=== PATIENT | male | born 1965 | race Caucasian/White ===

== ENCOUNTER 2017-05-28 08:15 | Emergency (ER) | payer OTHER ==
[2017-05-28 08:30] VITALS: BP 131/91
--- NOTE | 2017-05-28 09:09 | UC ---
General HPI - HPI Summary HPI Summary: 51 yo gentleman c/o since Saturday (today is ) fever, sore throat, cough min prod, nausea no vomit. + achy all over. + h/a with fever. - History of Current Complaint Chief Complaint: UCRespiratory Stated Complaint: FLU SYMPTOMS Time Seen by Provider: 05/28/17 08:41 Hx Obtained From: Patient Pain Intensity: 2 - Allergy/Home Medications Allergies/Adverse Reactions: Allergies Allergy/AdvReac Type Severity Reaction Status Date / Time allopurinol Allergy See Comment Verified 05/28/17 08:30 Home Medications: Home Medications Acetaminophen [APAP] 650 mg PO 05/28/17 [History] Dextromethorphn/Acetaminoph/Cp [Vicks Nyquil Cold & Flu Liquid] 05/28/17 [ History] PMH/Surg Hx/FS Hx/Imm Hx Previously Healthy: Yes - Surgical History Surgical History: None - Family History Known Family History: Positive: None - Social History Occupation: Employed Full-time Alcohol Use: Weekly Substance Use Type: None Smoking Status (MU): Never Smoked Tobacco Review of Systems Constitutional: Fever Skin: Negative Eyes: Negative ENT: Sore Throat, Nasal Discharge Respiratory: Cough Cardiovascular: Negative Gastrointestinal: Nausea Genitourinary: Negative Motor: Other - see hpi Musculoskeletal: Other: - see hpi Neurological: Other - see hpi Psychological: Negative Is Patient Immunocompromised?: No All Other Systems Reviewed And Are Negative: Yes Physical Exam Triage Information Reviewed: Yes Appearance: Well-Nourished - sitting up. conversing in full sentances. Vital Signs: Initial Vital Signs Temp 98.3 F 05/28/17 08:26 Pulse 87 05/28/17 08:26 Resp 18 05/28/17 08:26 BP 131/91 05/28/17 08:26 Pulse Ox 98 05/28/17 08:26 Vital Signs Reviewed: Yes Eye Exam: Normal ENT: Positive: Pharyngeal erythema - no sores or exudates. uvula midline., TM dull Neck exam: Normal Neck: Positive: Supple, Nontender Respiratory Exam: Normal Respiratory: Positive: Chest non-tender, Lungs clear, Normal breath sounds, No respiratory distress Cardiovascular Exam: Normal Cardiovascular: Positive: RRR, No Murmur, Pulses Normal Abdominal Exam: Normal Abdomen Description: Positive: Nontender - but feels that nausea will start once he starts moving around Bowel Sounds: Positive: Present Musculoskeletal Exam: Normal - moves x 4 ext's, gait steady Neurological Exam: Normal - grossly nonfocal Psychological Exam: Normal - conversing easily and appropriately Skin Exam: Normal - no visible or reported rash Course/Dx - Course Course Of Treatment: Influenza B. Reviewed with Mr. De La Cruz coa /tx plan. Questions as posed answered to the best of my ability. - Differential Dx - Multi-Symptom Provider Diagnoses: Influenza B Discharge - Discharge Plan Condition: Stable Disposition: HOME Patient Education Materials: Influenza (ED) Forms: *Work Release Referrals: [facility] [place] [facility] [Outside] No Primary Care Phys,NOPCP [Primary Care Provider] - Additional Instructions: You have tested positive for "INFLUENZA B" Follow up with your primary care physician, in the next 2- 4 weeks for respiratory recheck, especially if still coughing. Seek medical attention for worse or new problems.
== END 2017-05-28 09:06 | disposition home or self-care (01) ==
LOC: UCEAST 08:15
DX: J10.1 Influenza due to other identified influenza virus with other respiratory manifestations (principal)
CPT/HCPCS: 87502; 99211; G0463